=== PATIENT | female | born 1925 | race Caucasian/White ===

== ENCOUNTER → 2016-03-31 | Outpatient (CLI) | payer OTHER ==
[~2016-03-31] MED LIST: APAP/CODEINE ELI5 M1 OR; ASPIRIN81 M2 PO; ATENOLOL 25 MG25 M1 PO; BENADRYL25 MG PO; HCTZ; HYDROCODON-ACE1 EAC7 PO; HYDROCODON-ACE1 EACH PO; IBUPROFEN 200200 M1 PO; JANTOVEN2.5 MG PO; LEVOTHROID; LIPITOR 20 MG T20 M1 PO; LOPRESSOR25 PO; LORTAB 5 MG/5001 TA1 PO; NABUMETONE 500500 M1 PO; NORVASC5 MG PO; PROMETHAZI6.25 MG/2; RELAFEN500 MG PO; SYNTHROID100 MCG PO; TESSALON PERLE100 MG PO; UNICOMPLEX M TA1 TA1 PO; ZOFRAN ODT4 MG PO; ZPAK PO
--- NOTE | ~2016-03-31 | 2DMMODE ---
[facility] [place] [address] 2 D/M-MODE ECHOCARDIOGRAM Name: CECILIO HOFFMAN Room #: REG CL Favian#: [id number] Admission: 03/31/16 Attend Phys: Nikhil Carmichael MD Discharge: Date of : [birth year] Date of Service: 03/31/16 1313 Report #: [id number] THIS REPORT FOR: //name// Transthoracic Echocardiography Ordering physician: Nikhil Carmichael MD Referring physician: Vitaliy Angelo MD Fur Remodeler: Luana Vaughn Indications/History: CAD, Aortic valve replacement. BP: 150 / HR: 73bpm Height: 65in Weight: 116.8lb 73 Study data: M-mode, complete 2D, complete spectral Doppler, and color Doppler. Location: Echo laboratory. Routine. Image quality was adequate. 2D measurements Normal Normal LVID ED 44.9mm 36-57 IVS ED 8.8mm 6-11 LVID ES 31.2mm 23-40 LVPW ED 9.3mm 6-11 LA volume 41ml/m2 16-28 AoRoot diam 27.1mm 21-37 index ED LVOT diameter 17mm 18-23 Findings: Left ventricle: The cavity size was normal. Wall thickness was normal. Systolic function was normal. The estimated ejection fraction was in the range of 60% to 65%. Wall motion was normal. Right ventricle: The cavity size was normal. Systolic function was normal. Right atrium: The atrium was mildly dilated. Left atrium: The atrium was moderately dilated. Volume index: 41ml/m2 (S). Aortic valve: A 21mmbioprosthesis was present. Doppler: No regurgitation. Peak velocity: 304.4cm/s (S). Mean gradient: 21.8mm Hg (S). Peak gradient: 37.1mm Hg (S). [facility] [address] [place] [address] 2 D/M-MODE ECHOCARDIOGRAM Name: CECILIO HOFFMAN Room #: REG CL Favian#: [id number] Admission: 03/31/16 Attend Phys: Nikhil Carmichael MD Discharge: Date of : [birth year] Date of Service: 03/31/16 1313 Report #: [id number] Mitral valve: Mildly calcified annulus. Mildly thickened leaflets . Doppler: There was no evidence for stenosis. Mild to moderate regurgitation. Peak E-wave velocity: 122cm/s. Peak gradient: 6mm Hg (D). Peak A-wave velocity: 109.6cm/s. Tricuspid valve: Structurally normal valve. Doppler: There was no evidence for stenosis. Moderate regurgitation. Regurgitant peak velocity: 265.4cm/s. Peak RV-RA gradient: 28mm Hg (S). Pulmonic valve: Structurally normal valve. Doppler: There was no evidence for stenosis. Mild regurgitation. Pericardium: There was no pericardial effusion. Aorta: Aortic root: The aortic root was normal in size. Pulmonary artery: Systolic pressure was estimated to be 33mm Hg. Diastolic function: Features are consistent with a pseudonormal left ventricular filling pattern, with concomitant abnormal relaxation and increased filling pressure (grade 2 diastolic dysfunction). Systemic veins: Inferior vena cava: The vessel was normal in size; the respirophasic diameter changes were in the normal range (= 50%). Conclusions 1. Left ventricle: The cavity size was normal. Wall thickness was normal. Systolic function was normal. The estimated ejection fraction was in the range of 60% to 65%. 2. Right atrium: The atrium was mildly dilated. 3. Left atrium: The atrium was moderately dilated. 4. Aortic valve: A 21mmbioprosthesis was present. Mean gradient: 21.8mm Hg (S). 5. Mitral valve: Mildly calcified annulus. Mildly thickened leaflets . Mild to moderate regurgitation. 6. Tricuspid valve: Moderate regurgitation. 7. Pericardium, extracardiac: There was no pericardial effusion. <ELECTRONICALLY SIGNED> By: Nikhil Carmichael MD 03/31/16 1435 1313 1435 Nikhil Carmichael MD /mary grace
== END ==
LOC: CV 02-29 10:57
DX: I25.10 Atherosclerotic heart disease of native coronary artery without angina pectoris (principal); Z95.2 Presence of prosthetic heart valve

== ENCOUNTER 2016-06-15 04:19 | Inpatient (IN) | payer OTHER ==
[~2016-06-15] VITALS: Ht 165.1 cm; Wt 56.2 kg
--- NOTE | ~2016-06-15 | EKG ---
[address] [address] ELECTROCARDIOGRAM REPORT Name: CECILIO HOFFMAN Room #: 308-P ADM IN M.R.#: [id number] Admission: 06/15/16 Attend Phys: Etienne Adan MD Discharge: Date of : [birth year] Report #: [id number] THIS REPORT FOR: //name// [facility] ED Test Date: 2016-06-15 Test Time: 07:34:13 Pat Name: CECILIO HOFFMAN Department: Room: [facility] Gender: F Director Drug: Floyd WIGGINS : 1925 Requested By: Grey Sandoval Order Number: [id number] MD: Segundo Ndiaye Measurements Intervals [place] Rate: 125 P: -67 KS: 141 QRS: -52 QRSD: 108 T: 99 QT: 311 QTc: 449 Interpretive Statements Sinus or ectopic atrial tachycardia Left anterior fascicular block Abnormal R-wave progression, 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
--- NOTE | ~2016-06-15 | H ---
[facility] [place] [address] HISTORY AND PHYSICAL Name: CECILIO HOFFMAN Room #: 308-P [facility] Marbin Ballesteros#: [id number] Admission: 06/15/16 Attend Phys: Etienne Adan MD Discharge: Date of : [birth year] Report #: [id number] THIS REPORT FOR: //name// CC: Vitaliy Adan DATE OF SERVICE: 06/15/2016 CHIEF COMPLAINT: Fall, left hip pain. HISTORY OF PRESENT ILLNESS: The patient is an 89-year-old female who fell earlier today. The patient reports mechanical fall and denies syncope. She hit her head. She presented to the emergency room. She also complained of the left hip pain. Imaging studies, including CT scans and x-rays, showed no acute fracture. Head CT revealed no evidence of intracranial bleed. Hip x-ray showed no fracture. Neck CT also showed no fracture. On the CT of the pelvis and left hip, the patient has large hip hematoma posteriorly, measuring 20 cm in greatest dimension. She also has left ovarian cyst, 5 cm. The patient currently complains of pain, about 8/10. She has no other complaints. She states that before the fall she was feeling well and she was at her baseline. The patient's medication list includes Coumadin. The patient is unaware if she takes this medication at all. Her INR was 1.0. PAST MEDICAL HISTORY: 1. Hypothyroidism. 2. Hypertension. 3. Dyslipidemia. 4. Aortic stenosis, status post aortic valve replacement with bioprosthetic valve 2 years ago. 5. Cardiac echo in March of 2016 revealed normal ejection fraction of 60%. HOME MEDICATIONS: Aspirin 81 mg a day, atenolol 25 mg b.i.d., Lipitor 20 mg a day, Brinkley 5/325 mg a day, levothyroxine 100 mcg a day, multivitamins, Zofran as needed, and questionable Coumadin listed on the home medication list. Again, this is not confirmed. FAMILY HISTORY: Reviewed and not pertinent to the patient's condition. SOCIAL HISTORY: The patient does not smoke cigarettes and does not drink alcohol. [facility] [address] [place] [address] HISTORY AND PHYSICAL Name: CECILIO HOFFMAN Room #: 308-P [facility] Favian#: [id number] Admission: 06/15/16 Attend Phys: Etienne Adan MD Discharge: Date of : [birth year] Report #: [id number] REVIEW OF SYSTEMS: As above in the HPI section, all others negative. PHYSICAL EXAMINATION: GENERAL: The patient is an elderly female who is in no apparent distress. VITAL SIGNS: Blood pressure is 100/47, heart rate is 82, respiration is 18 and temperature is 97.4. HEENT EXAMINATION: Pupils are equal. Eye movements are normal. The patient has anicteric sclerae. The patient had a scalp laceration posteriorly, occipital region. NECK: Supple. The patient has no thyromegaly. RESPIRATORY EXAMINATION: Chest moves symmetrically, with breathing. The patient has clear respiratory sounds bilaterally. CARDIOVASCULAR EXAMINATION: The patient has regular rhythm and rate. She has no murmurs, gallops or rubs. GASTROINTESTINAL EXAMINATION: Abdomen is soft, nondistended and nontender. Bowel sounds are present. The patient has no hepatomegaly or splenomegaly. MUSCULOSKELETAL EXAMINATION: Range of motion is normal. The patient has no edema, cyanosis or clubbing. Posterior to the left hip, the patient has swelling and bruising. NEUROLOGICAL EXAMINATION: The patient is alert and oriented times 3. She has no motor or sensory deficits. SKIN EXAMINATION: The patient has a large bruise at the left hip. LABORATORY DATA: Troponin is undetectable. CBC shows mild anemia with hemoglobin of 10.3. Metabolic profile is essentially normal. IMAGING STUDIES: As above. ASSESSMENT AND PLAN: An 89-year-old female status post mechanical fall, sustaining large left hip hematoma posteriorly, measuring 20 cm in greatest dimension. As noted, neck CT scan, head CT and x-rays showed no fracture. 1. Status post mechanical fall, large left hip hematoma. The patient currently is in pain. This will be controlled symptomatically. Given the size of the left hematoma, I am asking general surgery to evaluate the patient. Consultation is very much appreciated. 2. Hypertension, acceptable control. Blood pressure is borderline low. Atenolol will be held as necessary. 3. Primary hypothyroidism. The patient will be continued on levothyroxine 100 mcg a day and TSH will be checked. 4. Medication clarification. As noted, Coumadin is included in the patient's home medication list. The patient is unaware if she is taking this medication and INR is 1.0. We will clarify this. [address] [address] HISTORY AND PHYSICAL Name: CECILIO HOFFMAN Room #: 308-P ADM Marbin Ballesteros#: [id number] Admission: 06/15/16 Attend Phys: Etienne Adan MD Discharge: Date of : [birth year] Report #: [id number] 5. Deep venous thrombosis prophylaxis. Given the hematoma, we will avoid anticoagulation and will use SCDs instead. By: 1208 1229 Etienne Adan MD /nt
--- NOTE | ~2016-06-15 | HC ---
[facility] [place] [address] [place] [address] CONSULTATION Name: CECILIO HOFFMAN Room #: 308-P [facility] IN M.R.#: [id number] Admission: 06/15/16 Attend Phys: Etienne Adan MD Discharge: Date of : [birth year] Report #: [id number] THIS REPORT FOR: //name// CC: Vitaliy Adan DATE OF SERVICE: 06/15/2016 HISTORY OF PRESENT ILLNESS: This frail and confused, but still active and ambulatory 89-year-old female fell landing hard on the left buttock. This resulted in a rather sizeable bruise and subcutaneous hematoma. She has no apparent fractures. She has had a previous left hip hemiarthroplasty done about 7 or 8 years ago. The patient and family state that she is able to ambulate with full weightbearing and has done nicely up until this new event. Objectively, the patient is slightly confused, but is conversant and seems to understand the situation well. She states she really has no significant problems aside from a bad bruise on the left buttock. There is quite a bit of bruising and swelling, but the overlying skin is intact. The hip itself demonstrates normal alignment and good range of motion without any apparent joint discomfort nor any evidence of instability. X-rays of the pelvis, left hip reveal a well-positioned cemented left hip bipolar hemiarthroplasty. The components appear to be stable. There is no evidence of any new fractures or displacement. The rest of the pelvis and the right hip revealed degenerative change, but no other significant problems. ASSESSMENT: In summary, I think she does have rather significant soft tissue bruise and deep hematoma in the left buttock and posterior lateral left thigh; however, this does not seem to involve the hip joint itself and there was no evidence of fracture nor any disruption to the preexisting hemiarthroplasty. I see no reason that we need to change her treatment program and feels she can stand and bear full weight on the extremity whenever comfort, strength and balance will allow. I expect the hematoma will be slow to resolve, but should resolve without any intervention. If she should have more significant soft tissue discomfort or evidence of redness or warmth which might suggest further problems with infection, then further evaluation might be required. I do not think we will need to do any running from an orthopedic standpoint at this time. I feel she may be discharged whenever appropriate arrangements are made for ongoing followup care. By: 1657 1841 Pablo Parra MD /nt
--- NOTE | ~2016-06-15 | HC ---
[facility] [place] [address] [place] [address] CONSULTATION Name: CECILIO HOFFMAN Room #: 308-P ADM IN M.R.#: [id number] Admission: 06/15/16 Attend Phys: Pablo Lopez MD Discharge: Date of : [birth year] Report #: [id number] THIS REPORT FOR: //name// CC: Vitaliy Adan DATE OF SERVICE: 06/15/2016 ATTENDING PHYSICIAN: Vitaliy Angelo MD/Pablo Lopez MD CONSULTING PHYSICIAN: Jean-Claude Moreno MD REASON FOR CONSULTATION: Left hip pain, hematoma. HISTORY OF PRESENT ILLNESS: This 89-year-old female patient fell earlier today and states that she hit her head and her left buttock. She denies loss of consciousness. She reports bleeding from her scalp, but ultimately controlled and left hip pain with swelling. She underwent a CT of the left pelvis and thigh which showed a 7.5 x 15 x 20 cm mass-like density felt to represent a hematoma posterior to the proximal femur. I have been asked to see the patient for further evaluation and treatment. The patient continues to complain of pain in her left hip. PAST MEDICAL HISTORY: Significant for hypothyroidism, hypertension, hyperlipidemia and aortic stenosis. PAST SURGICAL HISTORY: Includes aortic valve replacement with a bioprosthetic valve. The patient also reports having undergone left total hip arthroplasty 6 years ago. MEDICATIONS: Please see the hospital chart for details. This includes Synthroid, Lipitor, Norvasc, Tessalon Perles, and [place]. She is also receiving p.r.n. medications. ALLERGIES: Include FLAGYL, PENICILLIN, SULFA DRUGS, KEFLEX, CIPRO, METRONIDAZOLE and AMIODARONE. FAMILY HISTORY: Reviewed and noncontributory to this hospitalization. SOCIAL HISTORY: The patient denies use of tobacco, alcohol or illicit drugs. She lives alone in an apartment. REVIEW OF SYSTEMS: As per history of present illness. GENERAL: The patient denies unintentional weight loss. Denies fever or chills. HEENT: Denies changes in taste, vision, hearing, or smell. RESPIRATORY: Denies shortness of breath, COPD or asthma. [facility] [address] [place] [address] CONSULTATION Name: CECILIO HOFFMAN Room #: 308-P [facility] IN M.R.#: [id number] Admission: 06/15/16 Attend Phys: Pablo Lopez MD Discharge: Date of : [birth year] Report #: [id number] CARDIOVASCULAR: Denies chest pain or palpitations. GASTROINTESTINAL: Denies abdominal pain, nausea, vomiting. GENITOURINARY: Denies dysuria, urgency, increased urinary frequency or hematuria. MUSCULOSKELETAL: Reports left hip pain. See history of present illness. NEUROLOGIC: Denies headaches, numbness or tingling. PSYCHIATRIC: Denies depression, anxiety or suicidal ideations. SKIN AND INTEGUMENTARY: Denies new skin lesions, rashes, or moles. ENDOCRINE: Denies polydipsia, polyuria, heat or cold intolerance. HEMATOLOGIC: Denies easy bleeding or bruising. Denies anemia. All other review of systems is negative. PHYSICAL EXAMINATION: VITAL SIGNS: Temperature 97.4, blood pressure 102/46, pulse 87, respirations 18. GENERAL: This is a thin frail 89-year-old female patient who appears anxious. HEENT: Normocephalic. She has moist mucosal membranes. Oropharynx is clear. NECK: Supple, no appreciable lymphadenopathy. Trachea is midline. CHEST: Clear bilaterally. CARDIOVASCULAR: Regular rate and rhythm. ABDOMEN: Soft, nontender, nondistended. GENITOURINARY: Normal external female genitalia. EXTREMITIES: No clubbing or cyanosis. The patient has a left lateral hip scar and ecchymosis with tenderness to palpation. She is neurovascularly intact. NEUROLOGIC: Cranial nerves 2-12 grossly intact. PSYCHIATRIC: Normal affect. SKIN AND INTEGUMENTARY: No acute inflammatory changes, rashes or lesions are present. LABORATORY DATA: CBC shows a white blood cell count 8.2, hemoglobin 10.3, hematocrit 31.1 and platelets 170. Her electrolytes showed a sodium of 137, potassium 3.9, chloride 106, CO2 of 27, BUN 18, creatinine 0.7 and glucose 113. INR was normal at 1.0. Troponin I was less than 0.04. RADIOLOGIC STUDIES: CT findings are as noted above. The patient was not found to have a fracture of the left hip. Osteopenic changes were seen as well as hip replacement changes. IMPRESSION AND PLAN: This is an 89-year-old female patient with the above listed comorbidities, who has left hip pain after having fallen. Her CT scan shows a probable hematoma measuring 7.5 x 15 x 20 cm in the area of the posterior proximal femur. The patient has undergone a prior total hip arthroplasty. My recommendation is that she be evaluated by Orthopedic Surgery given her surgical history. She has no acute general surgery issues at this time. I will follow along peripherally. I appreciate the opportunity to [address] [address] CONSULTATION Name: CECILIO HOFFMAN Room #: 308-P ADM IN M.R.#: [id number] Admission: 06/15/16 Attend Phys: Pablo Lopez MD Discharge: Date of : [birth year] Report #: [id number] participate in the care of this patient and we will leave further recommendations and orders in the electronic medical record as appropriate. <ELECTRONICALLY SIGNED> By: Jean-Claude Moreno MD, FACS 06/17/16 1146 2051 0146 Jean-Claude Moreno MD, FACS /nt
[~2016-06-15 04:19] MED LIST changes: -NORVASC5 MG PO
[2016-06-15 04:45] LABS: HEMATOCRIT 31.1 % (37.0-47.0); HEMOGLOBIN 10.3 gm/dL (12.0-15.0); MCH 29.8 pg (26.0-34.0); MCHC 33.3 g/dL (28.0-37.0); MCV 89.5 fL (80.0-100.0); RBC 3.47 mil/uL (4.20-5.00); RDW 13.9 % (10.5-14.5); WBC 8.2 thou/uL (4.0-11.0)
[2016-06-15 04:50] LABS: ANION GAP 4 mmol/L (7-16); BUN 18 mg/dL (7-18); CALCIUM 8.2 mg/dL (8.5-10.1); CHLORIDE 106 mmol/L (98-107); CO2 27 mmol/L (21-32); CREATININE 0.7 mg/dL (0.6-1.3); GLUCOSE 113 mg/dL (70-99); POTASSIUM 3.9 mmol/L (3.5-5.1); SODIUM 137 mmol/L (136-145)
[2016-06-15 05:00] LABS: APTT 26.8 Seconds (24.5-32.8); PROTIME 10.7 Seconds (9.3-11.4)
[2016-06-15 05:01] LABS: TROPONIN-I < 0.04 ng/mL (<0.04-0.07)
[2016-06-15 08:29] VITALS: BP 112/77
[2016-06-15 09:32] VITALS: BP 100/47
[2016-06-15] MEDS ORDERED: NORVASC5 MG PO (13:36)
[2016-06-15] MEDS ORDERED: TESSALON PERLE100 MG PO (13:37)
[2016-06-15 14:10] VITALS: BP 102/46
[2016-06-15 17:04] VITALS: BP 108/46
[2016-06-15 19:45] VITALS: BP 135/55
[2016-06-15 23:30] VITALS: BP 119/52
[2016-06-16 04:05] VITALS: BP 121/60
[2016-06-16 05:09] LABS: ABSOLUTE NEUTROPHILS 3.2 thou/uL (1.4-8.2); BASOPHILS 0.7 % (0.0-2.0); EOSINOPHILS 4.8 % (0.0-3.0); HEMATOCRIT 20.3 % (37.0-47.0); LYMPHOCYTES 28.1 % (24.0-44.0); MCH 30.4 pg (26.0-34.0); MCHC 34.5 g/dL (28.0-37.0); PLATELET COUNT 114 thou/uL (150-400); POLYS 55.4 % (36.0-66.0); RBC 2.31 mil/uL (4.20-5.00); RDW 13.8 % (10.5-14.5); WBC 5.8 thou/uL (4.0-11.0)
[2016-06-16 05:22] LABS: MANUAL DIFF NO
[2016-06-16 05:25] LABS: CALCIUM 8.2 mg/dL (8.5-10.1); CREATININE 0.6 mg/dL (0.6-1.3); POTASSIUM 4.2 mmol/L (3.5-5.1)
[2016-06-16 08:00] VITALS: BP 136/52
[2016-06-16 12:00] VITALS: BP 142/46
[2016-06-16 16:00] VITALS: BP 117/49
[2016-06-16 19:12] VITALS: BP 119/51
[2016-06-17 04:19] VITALS: BP 125/81
[2016-06-17 04:55] LABS: HEMATOCRIT 20.8 % (37.0-47.0); MCHC 33.7 g/dL (28.0-37.0); RBC 2.33 mil/uL (4.20-5.00); RDW 14.2 % (10.5-14.5)
[2016-06-17 05:03] LABS: CALCIUM 8.2 mg/dL (8.5-10.1); CREATININE 0.6 mg/dL (0.6-1.3)
[2016-06-17 08:14] VITALS: BP 119/61
[2016-06-17 15:21] VITALS: BP 130/53
[2016-06-17 20:00] VITALS: BP 127/53
[2016-06-18 04:00] VITALS: BP 128/56
[2016-06-18 08:54] VITALS: BP 135/57
== END 2016-06-18 15:21 | DRG 605 ==
LOC: ER 04:19 → EROBS 06:12 → 3N 08:38
PROVIDERS: Emergency Medicine; Internal Medicine Endocrinology, Diabetes & Metabolism; Internal Medicine Geriatric Medicine
DX: S70.02XA Contusion of left hip, initial encounter (principal); I10 Essential (primary) hypertension; S01.01XA Laceration without foreign body of scalp, initial encounter; E03.9 Hypothyroidism, unspecified; E78.5 Hyperlipidemia, unspecified; I35.0 Nonrheumatic aortic (valve) stenosis; Z96.642 Presence of left artificial hip joint; Z60.2 Problems related to living alone; Z79.899 Other long term (current) drug therapy; Z79.82 Long term (current) use of aspirin; Z90.710 Acquired absence of both cervix and uterus; Z90.49 Acquired absence of other specified parts of digestive tract; Z88.1 Allergy status to other antibiotic agents; Z88.8 Allergy status to other drugs, medicaments and biological substances; Z95.2 Presence of prosthetic heart valve; Z88.0 Allergy status to penicillin; Z88.2 Allergy status to sulfonamides; W18.39XA Other fall on same level, initial encounter; Y93.89 Activity, other specified; Y92.89 Other specified places as the place of occurrence of the external cause; Y99.8 Other external cause status; Z23 Encounter for immunization